=== PATIENT | female | born 1960 | race Caucasian/White ===

== ENCOUNTER 2017-01-12 09:27 | Inpatient (IN) | payer SELFPAY ==
[2017-01-12 09:35] VITALS: BMI 21.4
--- NOTE | 2017-01-12 09:42 | DR.GENAD ---
HPI - PCP Primary Care Physician: DANIELLE - HPI Comment HPI Comment: HISTORY BELOW. - Complaint/Symptoms Chief Complaint Doctors Comments: UPPER ABDOMINAL PAIN FOR SEVERAL DAYS. HAVE GALL STONE. NOT HOLDING DOWN FLUID. HAVING DIARRHEA ALSO. NO FEVER. WORSE TODAY. Chief Complaint:: PT. C/O ABDOMINAL PAIN, WEAKNESS, DEHYDRATION, DIZZINESS, AND DIARRHEA. PT. WAS HOSPITALIZED ON FRIDAY IN [facility] AND WAS DIAGNOSED WITH PANCREATITIS AND GALLSTONES. PT. WAS D/C ON FRIDAY AND HAS GOTTEN WORSE SINCE. - Nurses notes reviewed Nurses Notes Review: Yes - Source History Provided: Patient, Family Member - Mode of Arrival Mode of Arrival: Ambulatory - Timing Onset of Chief Complaint: 01/08/17 - Duration Duration: Days - Severity Severity: Moderate PMH - PMH Past Medical History: Yes Past Medical History: Asthma, COPD Past Medical History Comment: HEMACROMOTISIS, HEP. 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 Past Surgical History Comment: TUBAL LIGATION, LIVER BIOPSY - Family History History of Family Medical Conditions: No - Social History Does patient currently use any type of tobacco product: Yes Have you used tobacco products in the last 12 months: Yes Type of Tobacco Use: Cigarettes Does any household member use tobacco: No Alcohol Use: None Do you use any recreational Drugs:: No Lives With: Friend Lives Where: Home - infectious screening In the last 2 months have you had wt loss of >10#?: NO Have you had fever, night sweats or hemotysis?: No Have you traveled outside the country in the last 6 months?: No Isolation: Standard ROS - Review of Systems Constitutional: Weakness, Fatigue Eyes: No Symptoms Reported ENTM: No Symptoms Reported Respiratoy: No Symptoms Reported Cardiovascular: No Symptoms Reported Gastrointestinal/Abdominal: Abdominal Pain, Diarrhea, Nausea Genitourinary: No Symptoms Reported Neurological: No Symptoms Reported Musculoskeletal: Muscle Pain Integumentary: No Symptoms Reported Hematologic/Lymphatic: No Symptoms Reported Endocrine: No Symptoms Reported PE - Vital Signs Vitals: Temperature 99.1 F Pulse Rate 95 Respiratory Rate 18 Blood Pressure [Right Arm] 133/70 Blood Pressure 93/57 O2 Sat by Pulse Oximetry 99 - General Limitations: No Limitations General Appearance: Alert - Head Head Exam: Normal Inspection - Eyes Eye exam: Normal Appearance - ENT ENT Exam: Normal External Ear Exam External Ear Exam: Normal External Inspection TM/Canal Exam: Bilateral Normal Nose Exam: Normal Nose Exam Mouth Exam: Normal Inspection Throat Exam: Normal Inspection - Neck Neck Exam: Trachea Midline - Chest Chest Inspection: Symmetric Chest Wall Rise - Respiratory Respiratory Exam: Normal Lung Sounds Bilat Respiratory Exam: Bilateral Clear to Auscultation - Cardiovascular Cardiovascular Exam: Regular Rate, Normal Rhythm, Normal Heart Sounds - Abdominal Exam Abdominal Exam: Normal Bowel Sounds, Soft, Tenderness Abdominal Tenderness: Diffuse, Moderate - Extremities Extremities Exam: Normal Inspection - Back Back Exam: Normal Inspection - Psychiatric Psychiatric Exam: Normal Affect, Normal Mood - Skin Skin Exam: Normal Color [facility] - Additional Information Additional Information Obtained From: Old Records - Differential Diagnosis Differential Diagnosis: ABDOMINAL PAIN, HYPOTENSION, GALL STONE Course - Treatment Treatment: SEE ORDERS. - Consultation Consultation Comments: DISCUSS PATIENT WITH DR. MONTES. HE WILL ADMIT PATIENT. - Education/Counseling Education/Counseling: Patient, Family, Education Educated On: Treatment, Diagnosis ROR - Labs Reviewed Laboratory Results Reviewed?: Yes Result Diagrams: 01/13/17 04:28 01/13/17 04:28 Laboratory: 01/12/17 13:17 Stool - Final WBC 12.9 X10^3/uL (3.6-10.0) H 01/12/17 09:56 RBC 3.63 X10^6/uL (3.5-5.4) 01/12/17 09:56 Hgb 11.4 g/dL (12.0-16.0) L 01/12/17 09:56 Hct 33.7 % (36.0-47.0) L 01/12/17 09:56 MCV 93.0 fL (80.0-100.0) 01/12/17 09:56 MCH 31.5 pg (27.0-34.0) 01/12/17 09:56 MCHC 33.9 g/dL (33.0-35.0) 01/12/17 09:56 RDW 13.8 % (11.6-16.5) 01/12/17 09:56 Plt Count 79 X10^3/uL (150.0-450.0) L 01/12/17 09:56 Plt Count Comment Decreased (ADEQUATE) A 01/12/17 09:56 MPV 9.9 fL (7.4-11.0) 01/12/17 09:56 Neut % 70.4 % (42.0-75.0) 01/12/17 09:56 Lymph % 13.7 % (21.0-51.0) L 01/12/17 09:56 Reagan % 15.4 % (0.0-13.0) H 01/12/17 09:56 Eos % 0.1 % (0.9-2.9) L 01/12/17 09:56 Baso % 0.4 % (0.2-1.0) 01/12/17 09:56 Neut # 9.1 x10^3/uL (2.2-4.8) H 01/12/17 09:56 Lymph # 1.8 X10^3/uL (1.3-2.9) 01/12/17 09:56 Reagan # 2.0 x10^3/uL (0.3-0.8) H 01/12/17 09:56 Eos # 0.0 x10^3/uL (0.0-0.2) 01/12/17 09:56 Baso # 0.1 X10^3/uL (0.0-0.1) 01/12/17 09:56 Absolute Nucleated RBC 0.0 /100WBC 01/12/17 09:56 Total Counted 100 01/12/17 09:56 Neutrophils % (Manual) 79 % (39-76) H 01/12/17 09:56 Lymphocytes % (Manual) 13 % (13-43) 01/12/17 09:56 Monocytes % (Manual) 8 % (4-9) 01/12/17 09:56 Nucleated RBCs Cancelled 01/12/17 09:56 Atypical Lymphocytes Cancelled 01/12/17 09:56 Blast Cells Cancelled 01/12/17 09:56 Smudge Cells Cancelled 01/12/17 09:56 Toxic Granulation Cancelled 01/12/17 09:56 Dohle Bodies Cancelled 01/12/17 09:56 Mouna Rods Cancelled 01/12/17 09:56 Plt Clumps, EDTA Cancelled 01/12/17 09:56 Giant Platelets Cancelled 01/12/17 09:56 Plt Morphology Comment Normal (NORMAL) 01/12/17 09:56 RBC Morphology Normal (NORMAL) 01/12/17 09:56 Dimorphic RBCs Cancelled 01/12/17 09:56 Polychromasia Cancelled 01/12/17 09:56 Hypochromasia Cancelled 01/12/17 09:56 Poikilocytosis Cancelled 01/12/17 09:56 Basophilic Stippling Cancelled 01/12/17 09:56 Anisocytosis Cancelled 01/12/17 09:56 Microcytosis Cancelled 01/12/17 09:56 Macrocytosis Cancelled 01/12/17 09:56 Spherocytes Cancelled 01/12/17 09:56 Pappenheimer Bodies Cancelled 01/12/17 09:56 Sickle Cells Cancelled 01/12/17 09:56 Target Cells Cancelled 01/12/17 09:56 Tear Drop Cells Cancelled 01/12/17 09:56 Ovalocytes Cancelled 01/12/17 09:56 Stomatocytes Cancelled 01/12/17 09:56 Helmet Cells Cancelled 01/12/17 09:56 [place] Bodies Cancelled 01/12/17 09:56 [place] Rings Cancelled 01/12/17 09:56 [place] Cells Cancelled 01/12/17 09:56 Crenated Cell Cancelled 01/12/17 09:56 Acanthocytes (Spur) Cancelled 01/12/17 09:56 Rouleaux Cancelled 01/12/17 09:56 Schistocytes Cancelled 01/12/17 09:56 Sodium 131 mmol/L (136-145) L 01/12/17 09:56 Corrected Sodium TNP 01/12/17 09:56 Potassium 3.8 mmol/L (3.5-5.1) 01/12/17 09:56 Chloride 101 mmol/L (98-107) 01/12/17 09:56 Carbon Dioxide 23.4 mmol/L (21-32) 01/12/17 09:56 BUN 5 mg/dL (7-18) L 01/12/17 09:56 Creatinine 1.05 mg/dL (0.55-1.02) H 01/12/17 09:56 Est GFR (MDRD) Af Amer > 60 (>60) 01/12/17 09:56 Est GFR (MDRD) Non-Af 58 (>60) L 01/12/17 09:56 Glucose 103 mg/dL (65-99) H 01/12/17 09:56 Calcium 7.8 mg/dL (8.5-10.1) L 01/12/17 09:56 Corrected Calcium 9.2 mg/dL (8.5-10.1) 01/12/17 09:56 Total Bilirubin 1.50 mg/dL (0.2-1.0) H 01/12/17 09:56 AST 69 Units/L (15-37) H 01/12/17 09:56 ALT 22 Units/L (12-78) 01/12/17 09:56 Alkaline Phosphatase 102 Units/L (46-116) 01/12/17 09:56 Total Protein 7.3 g/dL (6.4-8.2) 01/12/17 09:56 Albumin 2.3 g/dL (3.4-5.0) L 01/12/17 09:56 Globulin 5.0 g/dL (2.5-4.5) H 01/12/17 09:56 Albumin/Globulin Ratio 0.5 Ratio (1.1-2.1) L 01/12/17 09:56 Amylase 75 Units/L (25-115) 01/12/17 09:56 Lipase 151 Units/L (73-393) 01/12/17 09:56 Specimen Type Clean catch urine 01/12/17 10:00 Urine Color Yellow (YELLOW) 01/12/17 10:00 Urine Appearance Hazy (CLEAR) 01/12/17 10:00 Urine pH 6.0 (5.0 - 8.0) 01/12/17 10:00 Ur Specific [place] 1.015 (1.000-1.030) 01/12/17 10:00 Urine Protein 1+ (NEGATIVE) 01/12/17 10:00 Urine Glucose (UA) Negative (NEGATIVE) 01/12/17 10:00 Urine Ketones Negative (NEGATIVE) 01/12/17 10:00 Urine Occult Blood 1+ (NEGATIVE) 01/12/17 10:00 Urine Nitrite Negative (NEGATIVE) 01/12/17 10:00 Urine Bilirubin Negative (NEGATIVE) 01/12/17 10:00 Urine Urobilinogen 1+ (NORMAL) 01/12/17 10:00 Ur Leukocyte Esterase 2+ (NEGATIVE) 01/12/17 10:00 Urine RBC 0 /HPF (NEGATIVE) 01/12/17 10:00 Urine WBC 0-5 /HPF (NEGATIVE) 01/12/17 10:00 Ur Squamous Epith Cells Few /HPF (NEGATIVE) 01/12/17 10:00 Urine Bacteria Trace /HPF (NEGATIVE) 01/12/17 10:00 Ur Culture Indicated? No/not indicated 01/12/17 10:00 Stool Description 20g,brown loose 01/12/17 13:18 Stool for White Cells Negative (NEGATIVE) 01/12/17 13:18 Stl C. diff Tox B Gene Negative (NEGATIVE) 01/12/17 13:21 Stl C. diff [id number] Negative (NEGATIVE) 01/12/17 13:21 Cryptosporid parvum Ag Negative (NEGATIVE) 01/12/17 13:18 E. histolytica Antigen Negative (NEGATIVE) 01/12/17 13:18 Giardia lamblia Ag Negative (NEGATIVE) 01/12/17 13:18 - XRAY XRAY Interpreted by: Radiologist XRAY Findings: REPORT DISCUSS WITH PATIENT - Diagnosis Discharge Problem: Abdominal pain Qualifiers: Abdominal location: upper abdomen, unspecified Qualified Code(s): R10.10 - Upper abdominal pain, unspecified Gall stone Qualifiers: Cholecystitis presence: without cholecystitis Biliary obstruction: without biliary obstruction Qualified Code(s): K80.20 - Calculus of gallbladder without cholecystitis without obstruction Hypotension Qualifiers: Hypotension type: unspecified hypotension type Qualified Code(s): I95.9 - Hypotension, unspecified - Discharge Plan Disposition: ADMITTED INPATIENT Condition: Stable - Follow ups/Referrals - Instructions
[2017-01-12] MEDS ORDERED: NS 1000 ML 1,000 ML IV ONE ×2 (09:54→12:10)
[2017-01-12] MEDS ORDERED: NS 1000 ML 1,000 ML ONE ×2 (09:56→12:11)
[2017-01-12 10:10] LABS: BASOPHILS # (AUTO) 0.1 X10^3/uL (0.0-0.1); BASOPHILS % (AUTO) 0.4 % (0.2-1.0); EOSINOPHILS % (AUTO) 0.1 % (0.9-2.9); HEMATOCRIT 33.7 % (36.0-47.0); HEMOGLOBIN 11.4 g/dL (12.0-16.0); LYMPHOCYTES # (AUTO) 1.8 X10^3/uL (1.3-2.9); LYMPHOCYTES % (AUTO) 13.7 % (21.0-51.0); MEAN CORPUSCULAR HEMOGLOBIN 31.5 pg (27.0-34.0); MEAN CORPUSCULAR HGB CONC 33.9 g/dL (33.0-35.0); MEAN PLATELET VOLUME 9.9 fL (7.4-11.0); MONOCYTES % (AUTO) 15.4 % (0.0-13.0); NEUTROPHILS # (AUTO) 9.1 x10^3/uL (2.2-4.8); NEUTROPHILS % (AUTO) 70.4 % (42.0-75.0); PLATELET COUNT 79 X10^3/uL (150.0-450.0); RED BLOOD COUNT 3.63 X10^6/uL (3.5-5.4); RED CELL DISTRIBUTION WIDTH 13.8 % (11.6-16.5); WHITE BLOOD COUNT 12.9 X10^3/uL (3.6-10.0)
[2017-01-12 10:10] LABS: BILIRUBIN,URINE NEGATIVE (NEGATIVE); BLOOD/HEMOGLOBIN,URINE 1+ (NEGATIVE); GLUCOSE, URINE NEGATIVE (NEGATIVE); KETONES,URINE NEGATIVE (NEGATIVE); LEUKOCYTE ESTERASE ,URINE 2+ (NEGATIVE); NITRITES,URINE NEGATIVE (NEGATIVE); PROTEIN,URINE 1+ (NEGATIVE); UROBILINOGEN,URINE 1+ (NORMAL)
[2017-01-12 10:21] LABS: APPEARANCE,URINE HAZY (CLEAR); BACTERIA,URINE TRACE /HPF (NEGATIVE); COLOR,URINE YELLOW (YELLOW); RBC,URINE 0 /HPF (NEGATIVE); SQUAMOUS EPITHELIAL CELL,UR FEW /HPF (NEGATIVE)
[2017-01-12 10:22] LABS: ALANINE AMINOTRANSFERASE 22 Units/L (12-78); ALBUMIN 2.3 g/dL (3.4-5.0); ALKALINE PHOSPHATASE 102 Units/L (46-116); AMYLASE 75 Units/L (25-115); BLOOD UREA NITROGEN 5 mg/dL (7-18); CALCIUM 7.8 mg/dL (8.5-10.1); CARBON DIOXIDE 23.4 mmol/L (21-32); CHLORIDE 101 mmol/L (98-107); COR CA(FOR HYPOALB) 9.2 mg/dL (8.5-10.1); CREATININE 1.05 mg/dL (0.55-1.02); LIPASE 151 Units/L (73-393); SODIUM 131 mmol/L (136-145); TOTAL PROTEIN 7.3 g/dL (6.4-8.2); eGFR BLACK RACES > 60 (>60); eGFR NON BLACK RACES 58 (>60)
[2017-01-12 10:24] LABS: ASPARTATE AMINO TRANSFERASE 69 Units/L (15-37)
[2017-01-12 10:29] LABS: PLATELET MORPHOLOGY COMMENT NORMAL (NORMAL)
--- NOTE | 2017-01-12 10:45 | CT ---
HISTORY: Abdominal pain and weakness Study: CT abdomen and pelvis without contrast Comparison: None Technique: Multiple axial images of the abdomen and pelvis were obtained from the lung bases to the pubic symphy sis without the administration of IV contrast. Findings: The visualized portions of the lung bases are unremarkable. The liver, spleen, pancreas, kidneys, an d adrenal glands are unremarkable in their noncontrast CT appearance the gallbladder does demonstrate calcific density and heterogeneous attenuation consistent with multiple large stones within the gall bladder. Free fluid layering within the right and left pericolic gutter as well as over the right lob e of the liver is observed. Given the patient's history of pancreatitis may be residual findings. Alessandro e fluid layering within the pelvis is noted as well. No bowel wall thickening or bowel dilatation is present. The colon is unremarkable. Specifically, there is no diverticulosis noted within the sigm oid colon. The urinary bladder is grossly unremarkable. The bony structures are grossly intact. IMPRESSION: 1. Free fluid layering throughout the abdomen is noted and may be secondary to inflammatory changes from recent pancreatitis. However, at this time the pancreas does not demonstrate focal inflammatory changes or a pseudocyst. 2. Multiple large stones within the gallbladder are noted to be present but not well defined on this noncontrast CT of the abdomen and pelvis. Reported By:
[2017-01-12] MEDS ORDERED: PEPCID 20 MG IV PREMIX* 20 MG/50 ML BAG IV ONE ×2 (11:14→11:16)
[2017-01-12] MEDS ORDERED: TUSSIONEX PENNKINETIC SUSP PO ONE (11:18)
[2017-01-12] MEDS ORDERED: TUSSIONEX PENNKINETIC SUSP ONE (11:19)
[2017-01-12 13:54] LABS: CRYPTOSPORIDIUM PARVUM ANTIGEN NEGATIVE (NEGATIVE); GIARDIA LAMBLIA ANTIGEN NEGATIVE (NEGATIVE); STOOL FOR WBC NEGATIVE (NEGATIVE)
[2017-01-12] MEDS ORDERED: MORPHINE SULFATE INJ 2 MG INJ IVP PRN (14:50)
[2017-01-12] MEDS ORDERED: TYLENOL 325 MG TAB PO PRN (14:50)
[2017-01-12] MEDS ORDERED: PEPCID 20 MG IV PREMIX* 20 MG/50 ML BAG IV PRN (14:50)
[2017-01-12] MEDS: NS 1000 ML 1,000 ML IV SCH ×2 (16:33→23:10)
[2017-01-12] MEDS: DUONEB 0.5 MG/3 MG NEB SCH ×3 (16:38→21:35)
--- NOTE | 2017-01-12 17:08 | RAD ---
HISTORY: Cough and wheezing Study: Single-view chest Comparison: None available Findings: The trachea is midline. The cardiac silhouette is unremarkable. Diffuse interlobular septal thicken ing of the right and left apical lung zone is observed. Consolidation and airspace opacity in the lef t apical lung zone is noted be present continued evaluation CT of the chest with contrast is recommen ded as underlying interstitial lung disease cannot be entirely excluded given the reticular nodular a nd interlobular septal thickening. Multifocal pneumonia could have a similar appearance but the lack of basilar involvement would be unusual. The bony thorax is unremarkable. IMPRESSION: Interlobular septal thickening of the right and left apical lung zones with focal consolidation airsp hanny opacity of the left upper lobe. Continued evaluation with CT of the chest is recommended as under lying interstitial lung disease is the primary consideration. Multifocal bronchopneumonia cannot be e ntirely excluded but the lack basilar involvement would be unusual. Reported By:
[2017-01-12] MEDS: TESSALON PERLES PO PRN (17:20)
[2017-01-12] MEDS: ROXICODONE TAB 5 MG PO PRN (17:20)
[2017-01-12] MEDS ORDERED: PREVNAR 13 IM ONE (17:26)
[2017-01-12] MEDS ORDERED: FLUVIRIN IM ONE (17:26)
[2017-01-12] MEDS ORDERED: PULMICORT NEB TX 0.5 MG NEB SCH (21:45)
[2017-01-12] MEDS ORDERED: MOTRIN TAB 400 MG PO ONE (23:14)
[2017-01-13] MEDS: TESSALON PERLES PO PRN (01:28)
[2017-01-13] MEDS: NS 1000 ML 1,000 ML IV SCH ×3 (02:15→13:56)
[2017-01-13] MEDS: TUSSIONEX PENNKINETIC SUSP PO PRN ×2 (03:35→13:56)
[2017-01-13 05:50] LABS: ALANINE AMINOTRANSFERASE 17 Units/L (12-78); ALBUMIN 1.7 g/dL (3.4-5.0); ALKALINE PHOSPHATASE 71 Units/L (46-116); AMYLASE 90 Units/L (25-115); ASPARTATE AMINO TRANSFERASE 53 Units/L (15-37); BLOOD UREA NITROGEN 6 mg/dL (7-18); CALCIUM 7.1 mg/dL (8.5-10.1); CARBON DIOXIDE 24.8 mmol/L (21-32); CHLORIDE 108 mmol/L (98-107); COR CA(FOR HYPOALB) 8.9 mg/dL (8.5-10.1); CREATININE 0.87 mg/dL (0.55-1.02); LIPASE 202 Units/L (73-393); SODIUM 138 mmol/L (136-145); TOTAL PROTEIN 5.6 g/dL (6.4-8.2); eGFR BLACK RACES > 60 (>60); eGFR NON BLACK RACES > 60 (>60)
[2017-01-13 06:21] LABS: BASOPHILS % (AUTO) 0.5 % (0.2-1.0); EOSINOPHILS # (AUTO) 0.1 x10^3/uL (0.0-0.2); EOSINOPHILS % (AUTO) 0.9 % (0.9-2.9); HEMATOCRIT 28.6 % (36.0-47.0); HEMOGLOBIN 9.6 g/dL (12.0-16.0); LYMPHOCYTES # (AUTO) 1.4 X10^3/uL (1.3-2.9); LYMPHOCYTES % (AUTO) 13.9 % (21.0-51.0); MEAN CORPUSCULAR HEMOGLOBIN 31.7 pg (27.0-34.0); MEAN CORPUSCULAR HGB CONC 33.6 g/dL (33.0-35.0); MEAN CORPUSCULAR VOLUME 94.3 fL (80.0-100.0); MONOCYTES # (AUTO) 1.5 x10^3/uL (0.3-0.8); MONOCYTES % (AUTO) 14.8 % (0.0-13.0); NEUTROPHILS # (AUTO) 6.9 x10^3/uL (2.2-4.8); NEUTROPHILS % (AUTO) 69.9 % (42.0-75.0); PLATELET COUNT 78 X10^3/uL (150.0-450.0); RED BLOOD COUNT 3.04 X10^6/uL (3.5-5.4); RED CELL DISTRIBUTION WIDTH 13.9 % (11.6-16.5); WHITE BLOOD COUNT 9.9 X10^3/uL (3.6-10.0)
[2017-01-13] MEDS: DUONEB 0.5 MG/3 MG NEB SCH ×4 (09:26→20:41)
[2017-01-13] MEDS: PULMICORT NEB TX 0.5 MG NEB SCH ×2 (09:26→20:41)
[2017-01-13] MEDS ORDERED: FORTAZ or TAZICEF INJ 1 GM in NS 50 ML IV + SPIKE MINIBAG* 50 ML IV SCH (11:00)
[2017-01-13] MEDS: ALBUMIN HUMAN 25%- 100ML 200 ML IV SCH (11:40)
[2017-01-13] MEDS: LEVAQUIN PREMIX IV 750 MG 750 MG/150 ML BAG IV SCH (11:41)
[2017-01-13] MEDS ORDERED: NS 100 ML IV 100 ML IV ONE (11:41)
[2017-01-13] MEDS ORDERED: SYNTHROID 25 mcg TAB PO SCH (12:00)
[2017-01-13] MEDS: FORTAZ or TAZICEF INJ 1 GM in NS 50 ML IV 50 ML IV SCH ×2 (14:47→22:08)
--- NOTE | 2017-01-13 16:21 | CT ---
STUDY: CT CHEST WITH CONTRAST HISTORY: Shortness of breath. Cough. Comparison: Chest radiograph from 01/16/2017. Technique: Multiple axial images of the chest were obtained from the thoracic inlet to the upper abdo men with the administration of IV contrast. Findings: Multiple shotty lymph nodes are noted within the mediastinum. No pathologically enlarged lymph nodes are identified. There is no significant pericardial effusion. The aorta has a normal appearance. T he central pulmonary arterial system has a normal appearance. Evaluation of the lung parenchyma shows severe thickening of the pulmonary interstitium. There is a p redominantly upper lobe distribution, with minimal disease noted in the lower lobes bilaterally. Alth ough interstitial involvement predominates, there also appears to be some superimposed airspace opaci ty in both upper lobes. There is no evidence of consolidation, or pneumothorax. There are small bilateral pleural effusions. No pulmonary nodule or mass is identified. The bony thorax is unremarkable in its appearance. There is a small amount of abdominal ascites. IMPRESSION: 1. Extensive interstitial thickening involving predominantly both upper lobes. There appears to be s ome superimposed of airspace opacity in the same regions. Differential considerations would include t uberculosis, cystic fibrosis, hypersensitivity pneumonitis, sarcoidosis, silicosis, eosinophilic pneu monia or smoke inhalation. A superimposed bacterial infectious process cannot be excluded. Clinical correlation is recommended. Reported By:
[2017-01-13] MEDS ORDERED: MOTRIN TAB 400 MG PO ONE (16:26)
[2017-01-13] MEDS: ROXICODONE TAB 5 MG PO PRN (19:23)
[2017-01-14] MEDS: NS 1000 ML 1,000 ML IV SCH ×3 (00:37→17:09)
[2017-01-14] MEDS: ROXICODONE TAB 5 MG PO PRN ×2 (01:34→22:30)
[2017-01-14] MEDS: FORTAZ or TAZICEF INJ 1 GM in NS 50 ML IV 50 ML IV SCH ×3 (05:53→22:19)
[2017-01-14] MEDS: SYNTHROID 50 mcg TAB PO SCH (06:02)
[2017-01-14 06:51] LABS: ALANINE AMINOTRANSFERASE 19 Units/L (12-78); ALBUMIN 2.7 g/dL (3.4-5.0); ALKALINE PHOSPHATASE 66 Units/L (46-116); AMYLASE 77 Units/L (25-115); ASPARTATE AMINO TRANSFERASE 49 Units/L (15-37); BLOOD UREA NITROGEN 5 mg/dL (7-18); CALCIUM 7.9 mg/dL (8.5-10.1); CARBON DIOXIDE 24.2 mmol/L (21-32); CHLORIDE 108 mmol/L (98-107); COR CA(FOR HYPOALB) 8.9 mg/dL (8.5-10.1); CREATININE 0.63 mg/dL (0.55-1.02); LIPASE 156 Units/L (73-393); SODIUM 140 mmol/L (136-145); TOTAL PROTEIN 6.5 g/dL (6.4-8.2); eGFR BLACK RACES > 60 (>60); eGFR NON BLACK RACES > 60 (>60)
[2017-01-14 06:54] LABS: BASOPHILS % (AUTO) 0.6 % (0.2-1.0); EOSINOPHILS # (AUTO) 0.3 x10^3/uL (0.0-0.2); EOSINOPHILS % (AUTO) 4.5 % (0.9-2.9); HEMATOCRIT 29.4 % (36.0-47.0); LYMPHOCYTES # (AUTO) 1.4 X10^3/uL (1.3-2.9); LYMPHOCYTES % (AUTO) 19.2 % (21.0-51.0); MEAN CORPUSCULAR HEMOGLOBIN 31.8 pg (27.0-34.0); MEAN CORPUSCULAR HGB CONC 34.1 g/dL (33.0-35.0); MEAN CORPUSCULAR VOLUME 93.4 fL (80.0-100.0); MONOCYTES # (AUTO) 0.8 x10^3/uL (0.3-0.8); MONOCYTES % (AUTO) 11.7 % (0.0-13.0); NEUTROPHILS # (AUTO) 4.6 x10^3/uL (2.2-4.8); PLATELET COUNT 80 X10^3/uL (150.0-450.0); RED BLOOD COUNT 3.14 X10^6/uL (3.5-5.4); RED CELL DISTRIBUTION WIDTH 13.7 % (11.6-16.5); WHITE BLOOD COUNT 7.2 X10^3/uL (3.6-10.0)
[2017-01-14] MEDS: TUSSIONEX PENNKINETIC SUSP PO PRN (07:11)
--- NOTE | 2017-01-14 08:32 | RAD ---
HISTORY: Shortness of breath Study: Single-view of the chest Comparison: 01/13/2017 Findings: The trachea is midline. The cardiac silhouette is unremarkable. Images again demonstrate diffuse in terstitial thickening involving both lungs primarily the upper lobes. These findings have progressed/ worsened since prior study. Superimposed consolidation/pneumonia cannot entirely be excluded. Mick mmend clinical correlation and continued close interval follow-up for further evaluation. IMPRESSION: 1. Interval progression/worsening of disease as noted above. Reported By:
--- NOTE | 2017-01-14 09:24 | DR.CONSULT ---
Consult - Consultation for Day of: Date: 01/13/17 - Chief Complaint Chief Complaint: Nausea, Vomiting, Diarrhea, Abdominal pain - Allergies Allergies/Adverse Reactions: Allergies Allergy/AdvReac Type Severity Reaction Status Date / Time minocycline [From Minocin] Allergy Verified 01/12/17 09:35 - History of Present Illness History of Present Illness: Patient is a 56yo female who was referred for gall stones, abdominal pain, and abnormal LFTs. Patient has chronic viral Hep C genotype 1 and has been treated with Harvoni which she completed on 12/21/16. Her last Hep C quant on 12/20/2016 was not detected. Patient also has a history of Cirrhosis nad hemochromatosis. Patient complains of Nausea and vomiting after eating and abdominal pain which is more on her right side. Not tenderness is noted on palpitation of all 4 quadrations but on palpitation of side directly under ribs she has tenderness. She states this pain radiates through her back. Hgb 9.6, Total Bilirubin 1.0, AST 53, ALT 17, Alkaline Phosphatase 71 , Stool studies are negative. 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 - Social History Does patient currently use any type of tobacco product: Yes Have you used tobacco products in the last 12 months: Yes Type of Tobacco Use: Cigarettes How many years tobacco product used: 43 Does any household member use tobacco: No Alcohol Use: None Drug Use: Prescription Drugs - Medications Home Medications: Albuterol Sulfate [Proair Hfa] 1 inh INH PRN PRN 01/12/17 [History Confirmed ] Clonazepam [Klonopin] 1 tab PO TID PRN 01/12/17 [History Confirmed 01/12/17] Levothyroxine Sodium [SYNTHROID 25 mcg *] 50 mcg PO DAILY 01/12/17 [History Confirmed 01/12/17] - Review of Systems Constitutional: No Symptoms Reported Eyes: No Symptoms Reported ENT: No Symptoms Reported Respiratory: No Symptoms Reported Cardiovascular: No Symptoms Reported Gastrointestinal: See HPI, Nausea, Vomiting, Abdominal Pain, Diarrhea, Other ( denies dysphagia, dyspepsia). denies: Constipation, Melena, Hematochezia Genitourinary: No Symptoms Reported Musculoskeletal: No Symptoms Reported Skin: No Symptoms Reported Neurological: No Symptoms Reported - Physical Exam Vital Signs: Temperature 97.4 F Pulse Rate [Left Radial] 78 Pulse Rate 105 Respiratory Rate 20 Blood Pressure [Right Arm] 95/53 Blood Pressure 93/57 O2 Sat by Pulse Oximetry 100 Oriented: Normal Eyes: Normal Ear: Normal Nose: Normal Throat: Normal Respiratory: Clear Throughout Cardiovascular: Normal : Normal Auscultation: Bowel Sounds: Normal Palpation: Normal, Other (no distention). negative: Spleen Enlarged, Liver Enlarged, Mass Pulsatile Tenderness: Other (No tenderness to all four quadrants tenderness noted to right side under ribs) Skin: Normal Musculoskeletal: Normal Psychiatric: Normal Mood Description: Calm Affect: Normal Speech Pattern: Clear - Plan Plan: Assessment. 1. N/V/D likely gastroenteritis. 2. Right Musculoskeletal pain. 3. Symptomatic Cholelithiasis. Plan. 1. Pepcid 20mg BID, Zofran PRN, advance diet as tolerated, will perform EGD if symptoms persist. 2. Monitor likely secondary to cholelithiasis. 3. May need surgical intervention
[2017-01-14] MEDS: DUONEB 0.5 MG/3 MG NEB SCH ×4 (09:33→21:09)
[2017-01-14] MEDS: PULMICORT NEB TX 0.5 MG NEB SCH ×2 (09:33→21:09)
[2017-01-14] MEDS: ALBUMIN HUMAN 25%- 100ML 200 ML IV SCH (09:49)
[2017-01-14] MEDS: LEVAQUIN PREMIX IV 750 MG 750 MG/150 ML BAG IV SCH (11:05)
[2017-01-14] MEDS: SOLU-Medrol 40 MG VIAL IVP SCH ×3 (11:44→22:19)
[2017-01-14] MEDS: THEO-DUR TAB 200 MG PO SCH ×2 (11:44→22:19)
[2017-01-14] MEDS: MUCOMYST 20% 200 MG/ML NEB SCH ×2 (11:46→21:09)
[2017-01-14] MEDS: ZOFRAN INJ 4 MG VIAL IVP PRN (16:15)
--- NOTE | 2017-01-14 18:28 | DR.H&P ---
H&P - History & Physical for Day of: H&P Date: 01/12/17 - Chief Complaint Chief Complaint: abdominal pain, nausea, vomiting, diarrhea - Allergies Allergies/Adverse Reactions: Allergies Allergy/AdvReac Type Severity Reaction Status Date / Time minocycline [From Minocin] Allergy Verified 01/12/17 09:35 - History of Present Illness History of Present Illness: Ms. Emmanuel is a 56 year old female who presented to the emergency room with complaints of upper abdominal pain for several days. Patient reports that she was hospitalized in [facility] last week and diagnosed with pancreatitis and gallstones. Patient reports that she was discharged on Friday, and that her symptoms have progressively gotten worse. Abdominal pain is accompanied by nausea, vomiting, and diarrhea. Associated symptoms include weakness, fatigue, and muscle pain. She reports a medical history of asthma, COPD, hemacromotisis, Hepatitis C, tubal ligation, and a liver biopsy. On examination, lungs were noted with crackles. Patient reports that she has had a cough for several days. Abdomen is flat, soft, and noted with diffuse, moderate abdominal tenderness on palpation. On arrival to the ER, vitals were 99.1-95-18-99%-93/57. Labs and a abd/pelvis CT were obtained. Abnormal lab values include the following: WBC 12.9, Hgb 11.4, Hct 33.7, Plt Count 79, Plt count Comment Decreased A, Sodium 131, BUN 5, Creatinine 1.05, GFR (non) 58, Glucose 103, Calcium 7.8, Total Bilirubin 1.50, AST 69, Albumin 2.3, Globulin 5.0, A/G Ratio 0.5. Urinalysis reported: Osiel Hazy, Protein 1+, Occult Blood 1+, Urobilionogen 1+, Leuk Becky 2+, RBC 0, WBC 0-5, Squam Epith Cells Few , Bacteria Trace. Blood, sputum, and stool cultures were collected. Results of cultures are currently pending. Chest xray reported: Interlobular septal thickening of the right and left apical lung zones with focal consolidation airspace opacity of the left upper lobe. Continued evaluation with CT of the chest is recommended as underlying interstitial lung disease is the primary consideration. Multifocal bronchopneumonia cannot be entirely excluded but the lack basilar involvement would be unusual. Abd/Pelvis CT reported: Free fluid layering throughout the abdomen is noted and may be secondary to inflammatory changes from recent pancreatitis. However, at this time the pancreas does not demonstrate focal inflammatory changes or a pseudocyst. Multiple large stones within the gallbladder are noted to be present but not well defined on this non contrast CT of the abdomen and pelvis. spoke with . reports consulting with the patient at [facility]. He states that he recommends removing patients gallbladder on an elective, outpatient basis. We admitted patient for further treatment and evaluation. 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 was also consulted for continuation of care. Patient was started on NS at 150ml/hr, Phenergan 12.5mg IVP q6h prn nausea, Zofran 4mg IVP q6h prn nausea, Pepcid 20mg IV q12h, Tussionex 5ml q12h prn cough, Tessalon perles 200mg po TID prn cough, Duoneb QID, and oxycodone 5mg po q6h prn for generalized pain. We will obtain a Chest CT with contrast in the morning and follow up with AM labs. We will continue to monitor patient. 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 Additional Surgical History: TUBAL LIGATION, LIVER BIOPSY - Social History Does patient currently use any type of tobacco product: Yes Have you used tobacco products in the last 12 months: Yes Type of Tobacco Use: Cigarettes How many years tobacco product used: 43 Does any household member use tobacco: No Alcohol Use: None Drug Use: Prescription Drugs - Medications Home Medications: Albuterol Sulfate [Proair Hfa] 1 inh INH PRN PRN 01/12/17 [History Confirmed ] Clonazepam [Klonopin] 1 tab PO TID PRN 01/12/17 [History Confirmed 01/12/17] Levothyroxine Sodium [SYNTHROID 25 mcg *] 50 mcg PO DAILY 01/12/17 [History Confirmed 01/12/17] - Review of Systems Constitutional: Fever, Weakness Eyes: No Symptoms Reported. denies: Pain, Vision Change, Conjunctivae Inflammation ENT: No Symptoms Reported. denies: Ear Pain, Ear Discharge, Nose Pain, Nose Discharge, Nose Congestion Respiratory: See HPI, Cough, Shortness of Breath, SOB with Excertion Cardiovascular: Light Headedness. denies: Chest Pain, Edema Gastrointestinal: Nausea, Vomiting, Abdominal Pain, Diarrhea. denies: Melena, Hematochezia Genitourinary: No Symptoms Reported. denies: Dysuria, Hematuria, Retention Musculoskeletal: Other (GENERALIZED MUSCLE PAIN ) Skin: No Symptoms Reported. denies: Wound, Ecchymosis Neurological: Weakness. denies: Incoordination, Change in Speech, Seizures - Physical Exam Vital Signs: Temperature 97.9 F Pulse Rate [Right Brachial] 102 Pulse Rate [Left Radial] 78 Pulse Rate 89 Respiratory Rate 18 Blood Pressure [Right Arm] 118/58 Blood Pressure 93/57 O2 Sat by Pulse Oximetry 96 Oriented: Normal Eyes: Normal. negative: Blurred Vision, Diplopia, Discharge, Pain, Photophobia Ear: Normal. negative: Abrasion, Laceration Nose: Normal. negative: Discharge, Blood Throat: Normal Respiratory: Rhonchi Throughout Cardiovascular: Normal. negative: Murmur, Edema : Normal. negative: Testicular Pain, Bleeding, Auscultation: Bowel Sounds: Increased Palpation: Normal Tenderness: Diffuse, Moderate. negative: Rebound, Guarding, Rigidity Skin: Normal. negative: Wound, Bruising, Ecchymosis Musculoskeletal: Normal Psychiatric: Normal Mood Description: Calm Affect: Normal Speech Pattern: Clear - Assessment/Plan (1) Abdominal pain Qualifiers: Abdominal location: upper abdomen, unspecified Qualified Code(s): R10.10 - Upper abdominal pain, unspecified Status: Acute Plan: PEPCID IV Q12H, PHENERGAN 12.5MG IVP Q6H PRN, ZOFRAN 4MG IVP Q6H PRN, CONTINUE TO MONITOR (2) Gall stone Qualifiers: Cholecystitis presence: without cholecystitis Biliary obstruction: without biliary obstruction Qualified Code(s): K80.20 - Calculus of gallbladder without cholecystitis without obstruction Status: Acute Plan: CONSULT , CONTINUE TO MONITOR (3) Bronchopneumonia Status: Acute Plan: TESSALON PERLES 200MG TID PRN, TUSSIONEX 5ML PO Q12H PRN, DUONEB QID, CONTINUE TO MONITOR (4) Hypotension Qualifiers: Hypotension type: unspecified hypotension type Qualified Code(s): I95.9 - Hypotension, unspecified Status: Acute Plan: NORMAL SALINE AT 150ML/HR, CONTINUE TO MONITOR
[2017-01-15] MEDS: NS 1000 ML 1,000 ML IV SCH ×3 (04:59→13:27)
[2017-01-15] MEDS: FORTAZ or TAZICEF INJ 1 GM in NS 50 ML IV 50 ML IV SCH ×3 (05:29→21:23)
[2017-01-15] MEDS: SOLU-Medrol 40 MG VIAL IVP SCH ×3 (05:29→21:23)
[2017-01-15 05:36] LABS: BASOPHILS % (AUTO) 0.1 % (0.2-1.0); HEMATOCRIT 29.8 % (36.0-47.0); HEMOGLOBIN 10.1 g/dL (12.0-16.0); LYMPHOCYTES # (AUTO) 0.5 X10^3/uL (1.3-2.9); LYMPHOCYTES % (AUTO) 10.7 % (21.0-51.0); MEAN CORPUSCULAR HEMOGLOBIN 31.8 pg (27.0-34.0); MEAN CORPUSCULAR HGB CONC 33.9 g/dL (33.0-35.0); MEAN CORPUSCULAR VOLUME 93.9 fL (80.0-100.0); MONOCYTES # (AUTO) 0.3 x10^3/uL (0.3-0.8); MONOCYTES % (AUTO) 7.1 % (0.0-13.0); NEUTROPHILS # (AUTO) 3.8 x10^3/uL (2.2-4.8); NEUTROPHILS % (AUTO) 82.1 % (42.0-75.0); PLATELET COUNT 88 X10^3/uL (150.0-450.0); RED BLOOD COUNT 3.17 X10^6/uL (3.5-5.4); RED CELL DISTRIBUTION WIDTH 13.9 % (11.6-16.5); WHITE BLOOD COUNT 4.6 X10^3/uL (3.6-10.0)
[2017-01-15 05:46] LABS: ALANINE AMINOTRANSFERASE 18 Units/L (12-78); ALBUMIN 3.1 g/dL (3.4-5.0); ALKALINE PHOSPHATASE 63 Units/L (46-116); ASPARTATE AMINO TRANSFERASE 47 Units/L (15-37); BLOOD UREA NITROGEN 6 mg/dL (7-18); CALCIUM 8.4 mg/dL (8.5-10.1); CARBON DIOXIDE 25.9 mmol/L (21-32); CHLORIDE 108 mmol/L (98-107); COR CA(FOR HYPOALB) 9.1 mg/dL (8.5-10.1); COR NA(FOR HYPERGLY) 143 mmol/L (136-145); CREATININE 0.88 mg/dL (0.55-1.02); SODIUM 142 mmol/L (136-145); TOTAL PROTEIN 6.9 g/dL (6.4-8.2); eGFR BLACK RACES > 60 (>60); eGFR NON BLACK RACES > 60 (>60)
[2017-01-15] MEDS ORDERED: MAG-OX TAB PO PRN (05:54)
[2017-01-15] MEDS ORDERED: K-RIDER 10 MEQ/NS 100 ML 10 MEQ/100 ML BAG IV PRN (05:54)
[2017-01-15] MEDS ORDERED: MAGNESIUM SULFATE 1 GM/100 mL PREMIX 1 GM/100 ML BAG IV PRN (05:54)
[2017-01-15] MEDS: SYNTHROID 50 mcg TAB PO SCH (06:10)
--- NOTE | 2017-01-15 06:40 | RAD ---
HISTORY: Shortness of breath Study: Chest AP portable Comparison: 01/14/2017 plain film and chest CT Findings: The heart is within normal limits in size. Once again demonstrated is bilateral upper lobe interstiti al infiltrates with some superimposed alveolar filling. There is also involvement of the superior seg ment of the left lower lobe. Differential diagnosis is unchanged from that given on the chest CT. He ventrally, bronchoscopy, culture, and biopsy may be required for definitive diagnosis. The remainder of the lower lung prince are clear. No pleural effusions are identified. The bony thorax is unremarka ble. IMPRESSION: No change severe diffuse predominately upper lobe interstitial lung disease with some patchy areas of alveolar filling. Reported By:
[2017-01-15] MEDS: K-LYTE EFFERVESCENT PO PRN ×2 (07:06→18:48)
[2017-01-15] MEDS: DUONEB 0.5 MG/3 MG NEB SCH ×4 (08:58→21:32)
[2017-01-15] MEDS: PULMICORT NEB TX 0.5 MG NEB SCH ×2 (08:59→21:32)
[2017-01-15] MEDS: MUCOMYST 20% 200 MG/ML NEB SCH ×2 (08:59→21:33)
[2017-01-15] MEDS: THEO-DUR TAB 200 MG PO SCH ×2 (10:24→21:23)
[2017-01-15] MEDS: ALBUMIN HUMAN 25%- 100ML 200 ML IV SCH (10:24)
[2017-01-15] MEDS: LEVAQUIN PREMIX IV 750 MG 750 MG/150 ML BAG IV SCH (10:25)
[2017-01-15] MEDS ORDERED: APLISOL ID ONE (11:01)
[2017-01-15] MEDS: ROXICODONE TAB 5 MG PO PRN (11:31)
[2017-01-15] MEDS: NS 250 ML IV 250 ML IV SCH (12:10)
[2017-01-15] MEDS ORDERED: POTASSIUM CHLORIDE LIQ 20 MEQ UDC PO NR (12:22)
--- NOTE | 2017-01-15 13:09 | PCM.PROG ---
Progress Note - Progress Note for Day of Date: 01/13/17 - Subjective Subjective: WAS ADMITTED FOR ABDOMINAL PAIN. CT REVEALED GALL STONES. REPORTS THAT HE RECOMMENDS FOLLOW UP FOR GALLSTONES ON AN OUTPATIENT BASIS. TODAY, SHE IS ALERT AND ORIENTED, SITTING UP IN BED ON MORNING ROUNDS. PATIENT'S DAUGHTER IS AT BEDSIDE. PATIENT IS NOTED WITH COMPLAINTS OF WEAKNESS, COUGH, SHORNTESS OF BREATH, AND ABDOMINAL PAIN. PATIENT REPORTS THAT SHE HAS HAD A COUGH FOR QUITE SOME TIME THAT DOES NOT SEEM TO BE IMPROVING. SHE REPORTS THAT COUGH IS PRODUCTIVE. ON EXAMINATION, LUNGS ARE NOTED WITH CRACKLES BILATERALLY TO AUSCULTATION. ABDOMEN IS ROUND, SOFT, AND NOTED WITH DIFFUSE TENDERNESS ON PALPATION. SHE DENIES DIARRHEA THROUGHOUT THE NIGHT OR THIS MORNING. STAFF REPORTS THAT PATIENT HAD A TEMPERATURE OF 103.1 LAST NIGHT. HER VITALS THIS MORNING ARE 97.5-91-20-96%-115/78. ABNORMAL LAB VALUES TODAY INCLUDE THE FOLLOWING: RBC 3.04, HGB 9.6, HCT 28.6, PLT COUNT 78, CHLORIDE 108, BUN 6, GLUCOSE 104, CALCIUM 7.1, AST 53, TOTAL PROTEIN 5.6, ALBUMIN 1.7. WE OBTAINED A CT OF THE CHEST TODAY. IT REPORTED EXTENSIVE INTERSTITIAL THICKENING INVOLVING PREDOMINANTLY BOTH UPPER LOBES. SOME SUPERIMPOSED OF AIRSPACE OPACITY IN THE SAME REGIONS. DIFFERENTIAL CONSIDERATIONS WOULD INCLUDE TUBERCULOSIS, CYSTIC FIBROSIS, HYPERSENSITIVITY PNEUMONITIS, SARCOIDOSIS, SILICOSIS, EOSINOPHILIC PNEUMONIA, OR SMOKE INHALATION. A SUPERIMPOSED BACTERIAL INFECTIOUS PROCESS CANNOT BE INCLUDE. IT ALSO REPORTED A SMALL AMOUNT OF ABDOMINAL ASCITES. PATIENT REPORTS BEING A HEAVY SMOKER FOR 43 YEARS. SHE CURRENTLY REPORTS SMOKING 1/2 PACK PER DAY. TODAY , WE WILL START FORTAZ 1GM IV Q8H, LEVAQUIN 750MG IV DAILY, ALBUMIN 25% 2 BAGS DAILY, OBTAIN A FLU SWAB, CONSULT GASTROENTEROLOGY, AND OBTAIN AM LABS. WE WILL CONTINUE TO MONITOR PATIENT. - Past Medical Family Social History Past Med/Fam/Surg Hx: No changes since H&P Allergies: Allergies minocycline [From Minocin] Allergy (Verified 01/12/17 09:35) - Review of Systems ROS: No change since H&P - Vital Signs and I&O's Vital Signs: Temperature 97.7 F Pulse Rate [Right Brachial] 112 Pulse Rate [Left Radial] 78 Pulse Rate 68 Respiratory Rate 22 Blood Pressure [Right Arm] 136/66 Blood Pressure 93/57 O2 Sat by Pulse Oximetry 91 Intake and Output: Intake & Output 01/13/17 01/14/17 01/15/17 01/16/17 11:59 11:59 11:59 11:59 Intake Total 840 2700 1800 Output Total 400 2600 150 Balance 456 482 4611 - Physical Exam Oriented: Normal Eyes: Normal. negative: Blurred Vision, Diplopia, Discharge, Pain, Photophobia Ear: Normal. negative: Abrasion, Laceration Nose: Normal. negative: Discharge, Blood Throat: Normal Respiratory: OTHER (CRACKLES) Cardiovascular: Normal. negative: Murmur, Edema : Normal. negative: Testicular Pain, Bleeding, Auscultation: Bowel Sounds: Increased Palpation: Normal Tenderness: Diffuse, Moderate. negative: Rebound, Guarding, Rigidity Skin: Normal. negative: Wound, Bruising, Ecchymosis Musculoskeletal: Normal Psychiatric: Normal Mood Description: Calm Affect: Normal Speech Pattern: Clear, Appropriate - Laboratory and Diagnostics Result Diagrams: 01/15/17 04:45 01/15/17 10:22 Labs: 01/12/17 21:42 Sputum - Expectorated Sputum Sputum Culture - Final 01/12/17 21:42 Sputum - Expectorated Sputum - Final 01/12/17 19:53 Blood Blood Culture - Preliminary 01/12/17 19:58 Blood Blood Culture - Preliminary 01/12/17 13:17 Stool Stool Culture - Final 01/12/17 13:17 Stool - Final Laboratory WBC 4.6 X10^3/uL (3.6-10.0) 01/15/17 04:45 RBC 3.17 X10^6/uL (3.5-5.4) L 01/15/17 04:45 Hgb 10.1 g/dL (12.0-16.0) L 01/15/17 04:45 Hct 29.8 % (36.0-47.0) L 01/15/17 04:45 MCV 93.9 fL (80.0-100.0) 01/15/17 04:45 MCH 31.8 pg (27.0-34.0) 01/15/17 04:45 MCHC 33.9 g/dL (33.0-35.0) 01/15/17 04:45 RDW 13.9 % (11.6-16.5) 01/15/17 04:45 Plt Count 88 X10^3/uL (150.0-450.0) L 01/15/17 04:45 Plt Count Comment Decreased (ADEQUATE) A 01/12/17 09:56 MPV 10.0 fL (7.4-11.0) 01/15/17 04:45 Neut % 82.1 % (42.0-75.0) H 01/15/17 04:45 Lymph % 10.7 % (21.0-51.0) L 01/15/17 04:45 Amite % 7.1 % (0.0-13.0) 01/15/17 04:45 Eos % 0.0 % (0.9-2.9) L 01/15/17 04:45 Baso % 0.1 % (0.2-1.0) L 01/15/17 04:45 Neut # 3.8 x10^3/uL (2.2-4.8) 01/15/17 04:45 Lymph # 0.5 X10^3/uL (1.3-2.9) L 01/15/17 04:45 Amite # 0.3 x10^3/uL (0.3-0.8) 01/15/17 04:45 Eos # 0.0 x10^3/uL (0.0-0.2) 01/15/17 04:45 Baso # 0.0 X10^3/uL (0.0-0.1) 01/15/17 04:45 Absolute Nucleated RBC 0.1 /100WBC 01/15/17 04:45 Total Counted 100 01/12/17 09:56 Neutrophils % (Manual) 79 % (39-76) H 01/12/17 09:56 Lymphocytes % (Manual) 13 % (13-43) 01/12/17 09:56 Monocytes % (Manual) 8 % (4-9) 01/12/17 09:56 Nucleated RBCs Cancelled 01/12/17 09:56 Atypical Lymphocytes Cancelled 01/12/17 09:56 Blast Cells Cancelled 01/12/17 09:56 Smudge Cells Cancelled 01/12/17 09:56 Toxic Granulation Cancelled 01/12/17 09:56 Dohle Bodies Cancelled 01/12/17 09:56 Mouna Rods Cancelled 01/12/17 09:56 Plt Clumps, EDTA Cancelled 01/12/17 09:56 Giant Platelets Cancelled 01/12/17 09:56 Plt Morphology Comment Normal (NORMAL) 01/12/17 09:56 RBC Morphology Normal (NORMAL) 01/12/17 09:56 Dimorphic RBCs Cancelled 01/12/17 09:56 Polychromasia Cancelled 01/12/17 09:56 Hypochromasia Cancelled 01/12/17 09:56 Poikilocytosis Cancelled 01/12/17 09:56 Basophilic Stippling Cancelled 01/12/17 09:56 Anisocytosis Cancelled 01/12/17 09:56 Microcytosis Cancelled 01/12/17 09:56 Macrocytosis Cancelled 01/12/17 09:56 Spherocytes Cancelled 01/12/17 09:56 Pappenheimer Bodies Cancelled 01/12/17 09:56 Sickle Cells Cancelled 01/12/17 09:56 Target Cells Cancelled 01/12/17 09:56 Tear Drop Cells Cancelled 01/12/17 09:56 Ovalocytes Cancelled 01/12/17 09:56 Stomatocytes Cancelled 01/12/17 09:56 Helmet Cells Cancelled 01/12/17 09:56 Pozo-Edmonds Bodies Cancelled 01/12/17 09:56 Plummer Rings Cancelled 01/12/17 09:56 [place] Cells Cancelled 01/12/17 09:56 Crenated Cell Cancelled 01/12/17 09:56 Acanthocytes (Spur) Cancelled 01/12/17 09:56 Rouleaux Cancelled 01/12/17 09:56 Schistocytes Cancelled 01/12/17 09:56 Sodium 142 mmol/L (136-145) 01/15/17 04:45 Corrected Sodium 143 mmol/L (136-145) 01/15/17 04:45 Potassium 2.9 mmol/L (3.5-5.1) L* 01/15/17 10:22 Chloride 108 mmol/L (98-107) H 01/15/17 04:45 Carbon Dioxide 25.9 mmol/L (21-32) 01/15/17 04:45 BUN 6 mg/dL (7-18) L 01/15/17 04:45 Creatinine 0.88 mg/dL (0.55-1.02) 01/15/17 04:45 Est GFR (MDRD) Af Amer > 60 (>60) 01/15/17 04:45 Est GFR (MDRD) Non-Af > 60 (>60) 01/15/17 04:45 Glucose 133 mg/dL (65-99) H 01/15/17 04:45 Lactic Acid 1.2 mmol/L (0.4-2.0) 01/12/17 19:58 Calcium 8.4 mg/dL (8.5-10.1) L 01/15/17 04:45 Corrected Calcium 9.1 mg/dL (8.5-10.1) 01/15/17 04:45 Magnesium 1.8 mg/dL (1.7-2.9) 01/15/17 04:45 Total Bilirubin 0.50 mg/dL (0.2-1.0) 01/15/17 04:45 AST 47 Units/L (15-37) H 01/15/17 04:45 ALT 18 Units/L (12-78) 01/15/17 04:45 Alkaline Phosphatase 63 Units/L (46-116) 01/15/17 04:45 Total Protein 6.9 g/dL (6.4-8.2) 01/15/17 04:45 Albumin 3.1 g/dL (3.4-5.0) L 01/15/17 04:45 Globulin 3.8 g/dL (2.5-4.5) 01/15/17 04:45 Albumin/Globulin Ratio 0.8 Ratio (1.1-2.1) L 01/15/17 04:45 Amylase 77 Units/L (25-115) 01/14/17 06:06 Lipase 156 Units/L (73-393) 01/14/17 06:06 Specimen Type Clean catch urine 01/12/17 10:00 Urine Color Yellow (YELLOW) 01/12/17 10:00 Urine Appearance Hazy (CLEAR) 01/12/17 10:00 Urine pH 6.0 (5.0 - 8.0) 01/12/17 10:00 Ur Specific [place] 1.015 (1.000-1.030) 01/12/17 10:00 Urine Protein 1+ (NEGATIVE) 01/12/17 10:00 Urine Glucose (UA) Negative (NEGATIVE) 01/12/17 10:00 Urine Ketones Negative (NEGATIVE) 01/12/17 10:00 Urine Occult Blood 1+ (NEGATIVE) 01/12/17 10:00 Urine Nitrite Negative (NEGATIVE) 01/12/17 10:00 Urine Bilirubin Negative (NEGATIVE) 01/12/17 10:00 Urine Urobilinogen 1+ (NORMAL) 01/12/17 10:00 Ur Leukocyte Esterase 2+ (NEGATIVE) 01/12/17 10:00 Urine RBC 0 /HPF (NEGATIVE) 01/12/17 10:00 Urine WBC 0-5 /HPF (NEGATIVE) 01/12/17 10:00 Ur Squamous Epith Cells Few /HPF (NEGATIVE) 01/12/17 10:00 Urine Bacteria Trace /HPF (NEGATIVE) 01/12/17 10:00 Ur Culture Indicated? No/not indicated 01/12/17 10:00 Stool Description 20g,brown loose 01/12/17 13:18 Stool for White Cells Negative (NEGATIVE) 01/12/17 13:18 Stl C. diff Tox B Gene Negative (NEGATIVE) 01/12/17 13:21 Stl C. diff [id number] Negative (NEGATIVE) 01/12/17 13:21 Cryptosporid parvum Ag Negative (NEGATIVE) 01/12/17 13:18 E. histolytica Antigen Negative (NEGATIVE) 01/12/17 13:18 Giardia lamblia Ag Negative (NEGATIVE) 01/12/17 13:18 Influenza Type A (PCR) Negative (NEGATIVE) 01/13/17 14:31 Influenza Type B (PCR) Negative (NEGATIVE) 01/13/17 14:31 - Plan (1) Abdominal pain Status: Acute Qualifiers: Abdominal location: upper abdomen, unspecified Qualified Code(s): R10.10 - Upper abdominal pain, unspecified Plan: PEPCID IV Q12H, PHENERGAN 12.5MG IVP Q6H PRN, ZOFRAN 4MG IVP Q6H PRN, CHECK AMYLASE/LIPASE IN THE MORNING. CONTINUE TO MONITOR (2) Gall stone Status: Acute Qualifiers: Cholecystitis presence: without cholecystitis Biliary obstruction: without biliary obstruction Qualified Code(s): K80.20 - Calculus of gallbladder without cholecystitis without obstruction Plan: CONSULT , CONTINUE TO MONITOR (3) Bronchopneumonia Status: Acute Plan: FORTAZ 1GM IV Q8H, LEVAQUIN 750MG IV DAILY, TESSALON PERLES 200MG TID PRN , TUSSIONEX 5ML PO Q12H PRN, DUONEB QID, CONTINUE TO MONITOR, OBTAIN (4) Hypotension Status: Acute Qualifiers: Hypotension type: unspecified hypotension type Qualified Code(s): I95.9 - Hypotension, unspecified Plan: NORMAL SALINE AT 150ML/HR, CONTINUE TO MONITOR (5) Hypoalbuminemia Status: Acute Plan: ALBUMIN 25% 2 BAGS IV DAILY, CONTINUE TO MONITOR
--- NOTE | 2017-01-15 19:25 | PCM.PROG ---
Progress Note - Progress Note for Day of Date: 01/14/17 - Subjective Subjective: IS ALERT AND ORIENTED, SITTING UP IN BED ON MORNING ROUNDS. PATIENT'S DAUGHTER IS AT BEDSIDE. PATIENT CONTINUES WITH COMPLAINTS OF WEAKNESS, PRODUCTIVE COUGH, SHORNTESS OF BREATH, AND ABDOMINAL PAIN. PATIENT REPORTS THAT SHORTNESS OF BREATH HAS WORSENED SINCE YESTERDAY. ON EXAMINATION, LUNGS CONTINUE WITH CRACKLES BILATERALLY TO AUSCULTATION. ABDOMEN IS ROUND, SOFT , AND NOTED WITH DIFFUSE TENDERNESS ON PALPATION. SHE IS UTILIZING OXYGEN VIA NASAL CANNULA AT 2L/MIN. PATIENTS TEMPERATURE REACHED 100.6 LAST NIGHT. HER VITALS THIS MORNING ARE 97.6-86-22-95%-106/58. ABNORMAL LAB VALUES TODAY INCLUDE THE FOLLOWING: RBC 3.14, HGB 10.0, HCT 29.4, PLT COUNT 80, POTASSIUM 3.3 , CHLORIDE 108, BUN 5, GLUCOSE 103, CALCIUM 8.4, AST 47, ALBUMIN 2.7. INFLUENZA WAS NEGATIVE. PRELIMINARY BLOOD CULTURES REPORT NO GROWTH. A CHEST XRAY WAS OBTAINED THIS MORNING. IT REPORTEDINTERVAL PROGRESSION/WORSENING OF DISEASE. WE CONSULTED WITH INFECTION CONTROL. PATIENT WAS PLACED ON DROPLET PRECAUTIONS. A SPUTUM ABF CULTURE WILL BE OBTAINED DAILY X 3 DAYS. A HIV PANEL WAS ORDERED. GASTROENTEROLOGY CONSULTED WITH PATIENT AND STARTED PATIENT ON PEPCID 20MG IV BID. THEY WILL CONTINUE TO OBSERVE PATIENT AND SCOPE PATIENT IF SYMPTOMS PERSIST. TODAY, WE WILL START SOLU-MEDROL 80MG IV Q8H, MATT-DUR 200MG PO BID, ADD MUCOMYST TO NEB TX, AND ADD PULMICORT NEB TX. WE WILL CHECK AM LABS AND CONTINUE TO MONITOR PATIENT. - Past Medical Family Social History Past Med/Fam/Surg Hx: No changes since H&P Allergies: Allergies minocycline [From Minocin] Allergy (Verified 01/12/17 09:35) - Review of Systems ROS: No change since H&P - Vital Signs and I&O's Vital Signs: Temperature 97.6 F Pulse Rate [Right Brachial] 107 Pulse Rate [Left Radial] 78 Pulse Rate 68 Respiratory Rate 20 Blood Pressure [Right Arm] 111/62 Blood Pressure 93/57 O2 Sat by Pulse Oximetry 96 Intake and Output: Intake & Output 01/13/17 01/14/17 01/15/17 01/16/17 11:59 11:59 11:59 11:59 Intake Total 840 2700 1800 2690 Output Total 400 2600 150 Balance 299 782 2465 2690 - Physical Exam Oriented: Normal Eyes: Normal. negative: Blurred Vision, Diplopia, Discharge, Pain, Photophobia Ear: Normal. negative: Abrasion, Laceration Nose: Normal. negative: Discharge, Blood Throat: Normal Respiratory: OTHER (CRACKLES) Cardiovascular: Normal. negative: Murmur, Edema : Normal. negative: Testicular Pain, Bleeding, Auscultation: Bowel Sounds: Increased Palpation: Normal Tenderness: Diffuse, Moderate. negative: Rebound, Guarding, Rigidity Skin: Normal. negative: Wound, Bruising, Ecchymosis Musculoskeletal: Normal Psychiatric: Normal Mood Description: Calm Affect: Normal Speech Pattern: Clear, Appropriate - Laboratory and Diagnostics Result Diagrams: 01/15/17 04:45 01/15/17 17:25 Labs: 01/12/17 21:42 Sputum - Expectorated Sputum Sputum Culture - Final 01/12/17 21:42 Sputum - Expectorated Sputum - Final 01/12/17 19:53 Blood Blood Culture - Preliminary 01/12/17 19:58 Blood Blood Culture - Preliminary 01/12/17 13:17 Stool Stool Culture - Final 01/12/17 13:17 Stool - Final Laboratory WBC 4.6 X10^3/uL (3.6-10.0) 01/15/17 04:45 RBC 3.17 X10^6/uL (3.5-5.4) L 01/15/17 04:45 Hgb 10.1 g/dL (12.0-16.0) L 01/15/17 04:45 Hct 29.8 % (36.0-47.0) L 01/15/17 04:45 MCV 93.9 fL (80.0-100.0) 01/15/17 04:45 MCH 31.8 pg (27.0-34.0) 01/15/17 04:45 MCHC 33.9 g/dL (33.0-35.0) 01/15/17 04:45 RDW 13.9 % (11.6-16.5) 01/15/17 04:45 Plt Count 88 X10^3/uL (150.0-450.0) L 01/15/17 04:45 Plt Count Comment Decreased (ADEQUATE) A 01/12/17 09:56 MPV 10.0 fL (7.4-11.0) 01/15/17 04:45 Neut % 82.1 % (42.0-75.0) H 01/15/17 04:45 Lymph % 10.7 % (21.0-51.0) L 01/15/17 04:45 [place] % 7.1 % (0.0-13.0) 01/15/17 04:45 Eos % 0.0 % (0.9-2.9) L 01/15/17 04:45 Baso % 0.1 % (0.2-1.0) L 01/15/17 04:45 Neut # 3.8 x10^3/uL (2.2-4.8) 01/15/17 04:45 Lymph # 0.5 X10^3/uL (1.3-2.9) L 01/15/17 04:45 [place] # 0.3 x10^3/uL (0.3-0.8) 01/15/17 04:45 Eos # 0.0 x10^3/uL (0.0-0.2) 01/15/17 04:45 Baso # 0.0 X10^3/uL (0.0-0.1) 01/15/17 04:45 Absolute Nucleated RBC 0.1 /100WBC 01/15/17 04:45 Total Counted 100 01/12/17 09:56 Neutrophils % (Manual) 79 % (39-76) H 01/12/17 09:56 Lymphocytes % (Manual) 13 % (13-43) 01/12/17 09:56 Monocytes % (Manual) 8 % (4-9) 01/12/17 09:56 Nucleated RBCs Cancelled 01/12/17 09:56 Atypical Lymphocytes Cancelled 01/12/17 09:56 Blast Cells Cancelled 01/12/17 09:56 Smudge Cells Cancelled 01/12/17 09:56 Toxic Granulation Cancelled 01/12/17 09:56 Dohle Bodies Cancelled 01/12/17 09:56 Mouna Rods Cancelled 01/12/17 09:56 Plt Clumps, EDTA Cancelled 01/12/17 09:56 Giant Platelets Cancelled 01/12/17 09:56 Plt Morphology Comment Normal (NORMAL) 01/12/17 09:56 RBC Morphology Normal (NORMAL) 01/12/17 09:56 Dimorphic RBCs Cancelled 01/12/17 09:56 Polychromasia Cancelled 01/12/17 09:56 Hypochromasia Cancelled 01/12/17 09:56 Poikilocytosis Cancelled 01/12/17 09:56 Basophilic Stippling Cancelled 01/12/17 09:56 Anisocytosis Cancelled 01/12/17 09:56 Microcytosis Cancelled 01/12/17 09:56 Macrocytosis Cancelled 01/12/17 09:56 Spherocytes Cancelled 01/12/17 09:56 Pappenheimer Bodies Cancelled 01/12/17 09:56 Sickle Cells Cancelled 01/12/17 09:56 Target Cells Cancelled 01/12/17 09:56 Tear Drop Cells Cancelled 01/12/17 09:56 Ovalocytes Cancelled 01/12/17 09:56 Stomatocytes Cancelled 01/12/17 09:56 Helmet Cells Cancelled 01/12/17 09:56 [place] Bodies Cancelled 01/12/17 09:56 [place] Rings Cancelled 01/12/17 09:56 [place] Cells Cancelled 01/12/17 09:56 Crenated Cell Cancelled 01/12/17 09:56 Acanthocytes (Spur) Cancelled 01/12/17 09:56 Rouleaux Cancelled 01/12/17 09:56 Schistocytes Cancelled 01/12/17 09:56 Sodium 142 mmol/L (136-145) 01/15/17 04:45 Corrected Sodium 143 mmol/L (136-145) 01/15/17 04:45 Potassium 3.5 mmol/L (3.5-5.1) 01/15/17 17:25 Chloride 108 mmol/L (98-107) H 01/15/17 04:45 Carbon Dioxide 25.9 mmol/L (21-32) 01/15/17 04:45 BUN 6 mg/dL (7-18) L 01/15/17 04:45 Creatinine 0.88 mg/dL (0.55-1.02) 01/15/17 04:45 Est GFR (MDRD) Af Amer > 60 (>60) 01/15/17 04:45 Est GFR (MDRD) Non-Af > 60 (>60) 01/15/17 04:45 Glucose 133 mg/dL (65-99) H 01/15/17 04:45 Lactic Acid 1.2 mmol/L (0.4-2.0) 01/12/17 19:58 Calcium 8.4 mg/dL (8.5-10.1) L 01/15/17 04:45 Corrected Calcium 9.1 mg/dL (8.5-10.1) 01/15/17 04:45 Magnesium 1.8 mg/dL (1.7-2.9) 01/15/17 04:45 Total Bilirubin 0.50 mg/dL (0.2-1.0) 01/15/17 04:45 AST 47 Units/L (15-37) H 01/15/17 04:45 ALT 18 Units/L (12-78) 01/15/17 04:45 Alkaline Phosphatase 63 Units/L (46-116) 01/15/17 04:45 Ammonia 38 umol/L (11-32) H 01/15/17 13:11 Total Protein 6.9 g/dL (6.4-8.2) 01/15/17 04:45 Albumin 3.1 g/dL (3.4-5.0) L 01/15/17 04:45 Globulin 3.8 g/dL (2.5-4.5) 01/15/17 04:45 Albumin/Globulin Ratio 0.8 Ratio (1.1-2.1) L 01/15/17 04:45 Amylase 77 Units/L (25-115) 01/14/17 06:06 Lipase 156 Units/L (73-393) 01/14/17 06:06 Specimen Type Clean catch urine 01/12/17 10:00 Urine Color Yellow (YELLOW) 01/12/17 10:00 Urine Appearance Hazy (CLEAR) 01/12/17 10:00 Urine pH 6.0 (5.0 - 8.0) 01/12/17 10:00 Ur Specific [place] 1.015 (1.000-1.030) 01/12/17 10:00 Urine Protein 1+ (NEGATIVE) 01/12/17 10:00 Urine Glucose (UA) Negative (NEGATIVE) 01/12/17 10:00 Urine Ketones Negative (NEGATIVE) 01/12/17 10:00 Urine Occult Blood 1+ (NEGATIVE) 01/12/17 10:00 Urine Nitrite Negative (NEGATIVE) 01/12/17 10:00 Urine Bilirubin Negative (NEGATIVE) 01/12/17 10:00 Urine Urobilinogen 1+ (NORMAL) 01/12/17 10:00 Ur Leukocyte Esterase 2+ (NEGATIVE) 01/12/17 10:00 Urine RBC 0 /HPF (NEGATIVE) 01/12/17 10:00 Urine WBC 0-5 /HPF (NEGATIVE) 01/12/17 10:00 Ur Squamous Epith Cells Few /HPF (NEGATIVE) 01/12/17 10:00 Urine Bacteria Trace /HPF (NEGATIVE) 01/12/17 10:00 Ur Culture Indicated? No/not indicated 01/12/17 10:00 Stool Description 20g,brown loose 01/12/17 13:18 Stool for White Cells Negative (NEGATIVE) 01/12/17 13:18 Stl C. diff Tox B Gene Negative (NEGATIVE) 01/12/17 13:21 Stl C. diff [id number] Negative (NEGATIVE) 01/12/17 13:21 Cryptosporid parvum Ag Negative (NEGATIVE) 01/12/17 13:18 E. histolytica Antigen Negative (NEGATIVE) 01/12/17 13:18 Giardia lamblia Ag Negative (NEGATIVE) 01/12/17 13:18 Influenza Type A (PCR) Negative (NEGATIVE) 01/13/17 14:31 Influenza Type B (PCR) Negative (NEGATIVE) 01/13/17 14:31 - Plan (1) Abdominal pain Status: Acute Qualifiers: Abdominal location: upper abdomen, unspecified Qualified Code(s): R10.10 - Upper abdominal pain, unspecified Plan: PEPCID IV Q12H, PHENERGAN 12.5MG IVP Q6H PRN, ZOFRAN 4MG IVP Q6H PRN, CHECK AMYLASE/LIPASE IN THE MORNING. CONTINUE TO MONITOR (2) Gall stone Status: Acute Qualifiers: Cholecystitis presence: without cholecystitis Biliary obstruction: without biliary obstruction Qualified Code(s): K80.20 - Calculus of gallbladder without cholecystitis without obstruction Plan: CONSULT , CONTINUE TO MONITOR (3) Bronchopneumonia Status: Acute Plan: SOLU-MEDROL 80MG IV Q8H PRN, PULMICORT NEB TX, , THEOPHYLLINE 200MG PO BID , MUCOMYST TO NEB [place] BID, FORTAZ 1GM IV Q8H, LEVAQUIN 750MG IV DAILY, TESSALON PERLES 200MG TID PRN, TUSSIONEX 5ML PO Q12H PRN, DUONEB QID, CONTINUE TO MONITOR (4) Hypotension Status: Acute Qualifiers: Hypotension type: unspecified hypotension type Qualified Code(s): I95.9 - Hypotension, unspecified Plan: NORMAL SALINE AT 150ML/HR, CONTINUE TO MONITOR (5) Hypoalbuminemia Status: Acute Plan: ALBUMIN 25% 2 BAGS IV DAILY, CONTINUE TO MONITOR
[2017-01-15] MEDS: PHENERGAN INJ 25 MG IVP PRN (21:23)
[2017-01-16] MEDS: NS 250 ML IV 250 ML IV SCH ×2 (03:07→14:47)
[2017-01-16 06:50] LABS: AMMONIA 28 umol/L (11-32)
[2017-01-16 07:00] LABS: ALANINE AMINOTRANSFERASE 23 Units/L (12-78); ALBUMIN 3.5 g/dL (3.4-5.0); ALKALINE PHOSPHATASE 57 Units/L (46-116); ASPARTATE AMINO TRANSFERASE 55 Units/L (15-37); BASOPHILS # (AUTO) 0.1 X10^3/uL (0.0-0.1); BLOOD UREA NITROGEN 7 mg/dL (7-18); CALCIUM 8.9 mg/dL (8.5-10.1); CARBON DIOXIDE 28.3 mmol/L (21-32); CHLORIDE 110 mmol/L (98-107); COR NA(FOR HYPERGLY) 146 mmol/L (136-145); HEMATOCRIT 27.1 % (36.0-47.0); HEMOGLOBIN 9.1 g/dL (12.0-16.0); LYMPHOCYTES # (AUTO) 0.4 X10^3/uL (1.3-2.9); MEAN CORPUSCULAR HEMOGLOBIN 31.5 pg (27.0-34.0); MEAN CORPUSCULAR HGB CONC 33.6 g/dL (33.0-35.0); MEAN CORPUSCULAR VOLUME 93.8 fL (80.0-100.0); MEAN PLATELET VOLUME 10.1 fL (7.4-11.0); MONOCYTES # (AUTO) 0.8 x10^3/uL (0.3-0.8); MONOCYTES % (AUTO) 7.6 % (0.0-13.0); NEUTROPHILS # (AUTO) 9.2 x10^3/uL (2.2-4.8); NEUTROPHILS % (AUTO) 87.4 % (42.0-75.0); PLATELET COUNT 101 X10^3/uL (150.0-450.0); RED BLOOD COUNT 2.89 X10^6/uL (3.5-5.4); RED CELL DISTRIBUTION WIDTH 14.4 % (11.6-16.5); SODIUM 145 mmol/L (136-145); TOTAL PROTEIN 6.7 g/dL (6.4-8.2); WHITE BLOOD COUNT 10.5 X10^3/uL (3.6-10.0); eGFR BLACK RACES > 60 (>60); eGFR NON BLACK RACES > 60 (>60)
--- NOTE | 2017-01-16 08:39 | RAD ---
History: Shortness of breath Study: Portable chest, comparison 01/15/2017 Findings: Portable AP erect chest labeled 6:44 a.m. shows the cardiac silhouette to be within normal limits. Persistent interstitial and alveolar infiltration of the upper lobes is seen. This appears slightly m ore apparent. No pleural effusion is noted. The osseous structures appear intact. Impression: 1. Interstitial and alveolar infiltration of the upper lobes, slightly increased over the previous ex am. Differential would include pneumonia from granulomatous or atypical organisms as well as fungal d isease. Hypersensitivity pneumonitis or inhalational exposure would be within the differential as wel l. 2. No pleural effusion is evident. Reported By:
[2017-01-16] MEDS: DUONEB 0.5 MG/3 MG NEB SCH ×4 (08:50→20:16)
[2017-01-16] MEDS: PULMICORT NEB TX 0.5 MG NEB SCH ×2 (08:51→20:16)
[2017-01-16] MEDS: MUCOMYST 20% 200 MG/ML NEB SCH ×2 (08:51→20:16)
[2017-01-16] MEDS: THEO-DUR TAB 200 MG PO SCH ×2 (09:05→22:06)
[2017-01-16] MEDS: SYNTHROID 50 mcg TAB PO SCH (09:05)
[2017-01-16] MEDS: LEVAQUIN PREMIX IV 750 MG 750 MG/150 ML BAG IV SCH (09:06)
[2017-01-16] MEDS: FORTAZ or TAZICEF INJ 1 GM in NS 50 ML IV 50 ML IV SCH ×2 (09:06→14:08)
[2017-01-16] MEDS: SOLU-Medrol 40 MG VIAL IVP SCH ×3 (09:06→23:55)
[2017-01-16] MEDS: ALBUMIN HUMAN 25%- 100ML 200 ML IV SCH (09:30)
[2017-01-16] MEDS: ALDACTONE TAB 25 MG PO SCH (10:46)
[2017-01-16] MEDS: DESYREL PO SCH ×2 (10:46→22:11)
[2017-01-16] MEDS: PROTONIX INJ 40 MG VIAL IVP SCH ×2 (10:47→22:06)
[2017-01-16] MEDS: PHENERGAN INJ 25 MG IVP PRN (10:49)
[2017-01-16] MEDS: DIFLUCAN 200 MG IV PREMIX* 200 MG/100 ML BAG IV SCH (14:44)
[2017-01-16] MEDS: ZOFRAN INJ 4 MG VIAL IVP PRN (15:43)
--- NOTE | 2017-01-16 16:51 | CT ---
CT abdomen and pelvis with contrast Indication: History of liver problems and COPD Technique: Helical CT images of the were obtained with IV contrast. Reformatted images in the gutierrez l and sagittal planes were also generated for review. Comparison: 01/12/2017 Findings: Limited images of the lower chest demonstrate new small-moderate bilateral effusions and pa tchy opacities throughout the visualized bilateral lower lobes, lingula and right middle lobe. No agg ressive osseous lesions are identified. There is moderate volume abdominal pelvic ascites, increased since prior exam. New mild generalized a nasarca is also noted. There is mild periportal edema. The liver is borderline cirrhotic in configura tion without focal lesion. There is a recanalized umbilical vein as well as small collateral varices within the left lower abdominal wall. The spleen, pancreas, adrenals and kidneys are unremarkable. Sm all gallstones are present within the nondistended gallbladder. Moderate gallbladder edema is likely related to chronic liver disease. There is no biliary dilatation. The GI tract is normal without focal bowel wall thickening or obstruction. There is mild calcificatio n of the abdominal aorta without aneurysm. The urinary bladder is unremarkable. The uterus is present . No free air or lymphadenopathy is identified. Impression: Borderline cirrhotic liver configuration with evidence of portal venous hypertension, including worse dillon abdominal pelvic ascites and portosystemic collaterals, as detailed above. Findings suggestive for volume overload, including new generalized anasarca and small-moderate bilate ral pleural effusions. New patchy airspace disease within the visualized lungs, suspicious for multifocal pneumonia. Cholelithiasis and additional incidental findings, as above. Reported By:
[2017-01-16] MEDS: TUSSIONEX PENNKINETIC SUSP PO PRN (17:18)
[2017-01-16 18:08] LABS: ABG BASE EXCESS 6.7 mmol/L (-2.0-2.0)
[2017-01-16 18:09] LABS: ABG ALLEN TEST POS; ABG HCO3 32.4 mmol/L (22-26); FRACTIONATED INSPIRED OXYGEN 32
[2017-01-16] MEDS: ROXICODONE TAB 5 MG PO PRN (18:16)
[2017-01-16] MEDS ORDERED: LASIX IVP ONE (18:24)
[2017-01-16 19:25] LABS: BILIRUBIN,URINE NEGATIVE (NEGATIVE); BLOOD/HEMOGLOBIN,URINE 2+ (NEGATIVE); GLUCOSE, URINE NEGATIVE (NEGATIVE); KETONES,URINE NEGATIVE (NEGATIVE); LEUKOCYTE ESTERASE ,URINE NEGATIVE (NEGATIVE); NITRITES,URINE NEGATIVE (NEGATIVE); PROTEIN,URINE 1+ (NEGATIVE); UROBILINOGEN,URINE NORMAL (NORMAL)
[2017-01-16] MEDS: MORPHINE SULFATE INJ 2 MG INJ IVP SCH ×2 (19:40→22:18)
[2017-01-16 20:05] LABS: APPEARANCE,URINE CLEAR (CLEAR); COLOR,URINE YELLOW (YELLOW); RBC,URINE 0-3 /HPF (NEGATIVE)
[2017-01-16 20:06] LABS: BACTERIA,URINE NEGATIVE /HPF (NEGATIVE); MUCUS,URINE FEW /HPF (NEGATIVE); SQUAMOUS EPITHELIAL CELL,UR MANY /HPF (NEGATIVE)
[2017-01-16] MEDS ORDERED: ZOSYN VIAL 3.375 GM IV SCH (21:00)
[2017-01-16] MEDS ORDERED: VANCOMYCIN HCL 1 GM VIAL IV SCH (21:00)
[2017-01-16] MEDS ORDERED: DUONEB 0.5 MG/3 MG NEB SCH (21:00)
[2017-01-16] MEDS ORDERED: VANCOMYCIN HCL 500 MG VIAL 500 MG in NS 100 ML IV + SPIKE MINIBAG* 100 ML IV SCH (21:00)
[2017-01-16] MEDS: ZOSYN VIAL 3.375 GM 3.375 GM in NS 100 ML IV + SPIKE MINIBAG* 100 ML IV SCH (22:03)
[2017-01-16] MEDS: VANCOMYCIN HCL 500 MG VIAL 500 MG in NS 100 ML IV + SPIKE MINIBAG* 100 ML IV SCH (22:17)
[2017-01-17] MEDS: DUONEB 0.5 MG/3 MG NEB SCH ×6 (00:43→20:27)
[2017-01-17] MEDS: MORPHINE SULFATE INJ 2 MG INJ IVP SCH ×13 (01:00→22:43)
[2017-01-17] MEDS: ZOSYN VIAL 3.375 GM 3.375 GM in NS 100 ML IV + SPIKE MINIBAG* 100 ML IV SCH ×4 (02:12→21:33)
[2017-01-17] MEDS: NS 250 ML IV 250 ML IV SCH ×2 (04:50→22:42)
[2017-01-17] MEDS: SOLU-Medrol 40 MG VIAL IVP SCH (05:43)
[2017-01-17] MEDS: SYNTHROID 50 mcg TAB PO SCH (06:12)
[2017-01-17 06:19] LABS: BASOPHILS % (AUTO) 0 % (0.2-1.0); HEMATOCRIT 24.1 % (36.0-47.0); HEMOGLOBIN 8.2 g/dL (12.0-16.0); LYMPHOCYTES # (AUTO) 0.4 X10^3/uL (1.3-2.9); LYMPHOCYTES % (AUTO) 6.4 % (21.0-51.0); MEAN CORPUSCULAR HEMOGLOBIN 31.7 pg (27.0-34.0); MEAN CORPUSCULAR HGB CONC 34.1 g/dL (33.0-35.0); MONOCYTES # (AUTO) 0.5 x10^3/uL (0.3-0.8); MONOCYTES % (AUTO) 8.7 % (0.0-13.0); NEUTROPHILS # (AUTO) 5.3 x10^3/uL (2.2-4.8); NEUTROPHILS % (AUTO) 84.9 % (42.0-75.0); PLATELET COUNT 84 X10^3/uL (150.0-450.0); RED BLOOD COUNT 2.59 X10^6/uL (3.5-5.4); RED CELL DISTRIBUTION WIDTH 14.2 % (11.6-16.5); WHITE BLOOD COUNT 6.2 X10^3/uL (3.6-10.0)
[2017-01-17 06:37] LABS: ALANINE AMINOTRANSFERASE 17 Units/L (12-78); ALBUMIN 3.3 g/dL (3.4-5.0); ALKALINE PHOSPHATASE 47 Units/L (46-116); ASPARTATE AMINO TRANSFERASE 36 Units/L (15-37); BLOOD UREA NITROGEN 11 mg/dL (7-18); CALCIUM 8.7 mg/dL (8.5-10.1); CARBON DIOXIDE 35.6 mmol/L (21-32); CHLORIDE 108 mmol/L (98-107); COR CA(FOR HYPOALB) 9.3 mg/dL (8.5-10.1); COR NA(FOR HYPERGLY) 148 mmol/L (136-145); SODIUM 147 mmol/L (136-145); TOTAL PROTEIN 6.1 g/dL (6.4-8.2); eGFR BLACK RACES > 60 (>60); eGFR NON BLACK RACES > 60 (>60)
[2017-01-17] MEDS: K-LYTE EFFERVESCENT PO PRN (06:47)
--- NOTE | 2017-01-17 07:54 | RAD ---
HISTORY: Shortness of breath, COPD, asthma, hemochromatosis, hepatitis C. Study: Single-view chest, done portably Comparison: 01/16/2017. Findings: Trachea is midline. The heart size is normal. Bilateral predominantly upper lobe interstitial and roberto eolar densities are again seen. Some improved aeration is seen in the left upper lobe. There are jj y signs of involvement of both lower lobes, more so on the right side. No pleural fluid or pneumothor ax is seen. Osseous structures are intact. IMPRESSION: Changing pattern of bilateral interstitial and alveolar densities. There is a wide differential diagn osis, as indicated by Dr. Orellana on his prior report. Reported By:
[2017-01-17] MEDS: TUSSIONEX PENNKINETIC SUSP PO PRN (08:10)
[2017-01-17] MEDS ORDERED: LEVAQUIN PREMIX IV 500 MG 500 MG/100 ML BAG IV SCH (09:00)
[2017-01-17] MEDS: PULMICORT NEB TX 0.5 MG NEB SCH ×2 (09:07→20:27)
[2017-01-17] MEDS: DESYREL PO SCH ×2 (09:16→20:10)
[2017-01-17] MEDS: THEO-DUR TAB 200 MG PO SCH ×2 (09:17→20:10)
[2017-01-17] MEDS: ALDACTONE TAB 25 MG PO SCH (09:17)
[2017-01-17 09:18] LABS: ABG BASE EXCESS 14.1 mmol/L (-2.0-2.0)
[2017-01-17] MEDS: DIFLUCAN 200 MG IV PREMIX* 200 MG/100 ML BAG IV SCH (09:18)
[2017-01-17 09:19] LABS: ABG ALLEN TEST POS; ABG HCO3 39.6 mmol/L (22-26); FRACTIONATED INSPIRED OXYGEN 21
[2017-01-17] MEDS: VANCOMYCIN HCL 500 MG VIAL 500 MG in NS 100 ML IV + SPIKE MINIBAG* 100 ML IV SCH ×2 (09:19→20:11)
[2017-01-17] MEDS: PROTONIX INJ 40 MG VIAL IVP SCH ×2 (09:19→20:11)
[2017-01-17] MEDS: ALBUMIN HUMAN 25%- 100ML 200 ML IV SCH (09:20)
[2017-01-17] MEDS: LASIX IVP SCH ×2 (11:13→20:11)
[2017-01-17 15:02] LABS: ABG BASE EXCESS 15.1 mmol/L (-2.0-2.0)
[2017-01-17 15:03] LABS: ABG HCO3 42.1 mmol/L (22-26)
[2017-01-17 15:04] LABS: ABG ALLEN TEST POS
[2017-01-17] MEDS ORDERED: NS 100 ML IV + SPIKE MINIBAG* 100 ML IV ONE (21:04)
[2017-01-17] MEDS ORDERED: ZOSYN VIAL 3.375 GM IV ONE (21:04)
[2017-01-18] MEDS: MORPHINE SULFATE INJ 2 MG INJ IVP SCH ×9 (00:50→16:41)
[2017-01-18] MEDS: DUONEB 0.5 MG/3 MG NEB SCH ×6 (00:54→17:57)
[2017-01-18] MEDS ORDERED: ZOSYN VIAL 3.375 GM IV ONE ×2 (02:05→14:54)
[2017-01-18] MEDS ORDERED: NS 100 ML IV 100 ML IV ONE (02:05)
[2017-01-18] MEDS: ZOSYN VIAL 3.375 GM 3.375 GM in NS 100 ML IV + SPIKE MINIBAG* 100 ML IV SCH ×3 (02:17→15:00)
[2017-01-18] MEDS: NS 250 ML IV 250 ML IV SCH (06:11)
[2017-01-18 06:19] LABS: BASOPHILS % (AUTO) 0.1 % (0.2-1.0); HEMATOCRIT 25.1 % (36.0-47.0); HEMOGLOBIN 8.7 g/dL (12.0-16.0); LYMPHOCYTES # (AUTO) 0.6 X10^3/uL (1.3-2.9); LYMPHOCYTES % (AUTO) 7.9 % (21.0-51.0); MEAN CORPUSCULAR HEMOGLOBIN 32.2 pg (27.0-34.0); MEAN CORPUSCULAR HGB CONC 34.6 g/dL (33.0-35.0); MEAN CORPUSCULAR VOLUME 93.1 fL (80.0-100.0); MEAN PLATELET VOLUME 8.7 fL (7.4-11.0); MONOCYTES # (AUTO) 0.7 x10^3/uL (0.3-0.8); MONOCYTES % (AUTO) 10.1 % (0.0-13.0); NEUTROPHILS # (AUTO) 5.8 x10^3/uL (2.2-4.8); NEUTROPHILS % (AUTO) 81.9 % (42.0-75.0); PLATELET COUNT 82 X10^3/uL (150.0-450.0); RED BLOOD COUNT 2.69 X10^6/uL (3.5-5.4); RED CELL DISTRIBUTION WIDTH 14.1 % (11.6-16.5)
[2017-01-18] MEDS: SYNTHROID 50 mcg TAB PO SCH (06:21)
[2017-01-18 06:26] LABS: ALANINE AMINOTRANSFERASE 24 Units/L (12-78); ALBUMIN 3.7 g/dL (3.4-5.0); ALKALINE PHOSPHATASE 49 Units/L (46-116); ASPARTATE AMINO TRANSFERASE 42 Units/L (15-37); BLOOD UREA NITROGEN 13 mg/dL (7-18); CALCIUM 8.5 mg/dL (8.5-10.1); CHLORIDE 100 mmol/L (98-107); COR NA(FOR HYPERGLY) 147 mmol/L (136-145); SODIUM 146 mmol/L (136-145); TOTAL PROTEIN 6.3 g/dL (6.4-8.2); eGFR BLACK RACES > 60 (>60); eGFR NON BLACK RACES > 60 (>60)
[2017-01-18 06:54] LABS: CARBON DIOXIDE 42.2 mmol/L (21-32)
[2017-01-18] MEDS: PULMICORT NEB TX 0.5 MG NEB SCH (09:00)
[2017-01-18] MEDS: K-LYTE EFFERVESCENT PO PRN ×2 (09:47→16:51)
[2017-01-18] MEDS: ALBUMIN HUMAN 25%- 100ML 200 ML IV SCH (09:49)
[2017-01-18] MEDS: DESYREL PO SCH (09:51)
[2017-01-18] MEDS: THEO-DUR TAB 200 MG PO SCH (09:51)
[2017-01-18] MEDS: PROTONIX INJ 40 MG VIAL IVP SCH (09:51)
[2017-01-18] MEDS: DIFLUCAN 200 MG IV PREMIX* 200 MG/100 ML BAG IV SCH (09:51)
[2017-01-18] MEDS: ALDACTONE TAB 25 MG PO SCH (09:52)
[2017-01-18] MEDS: VANCOMYCIN HCL 500 MG VIAL 500 MG in NS 100 ML IV + SPIKE MINIBAG* 100 ML IV SCH (12:00)
--- NOTE | 2017-01-18 13:34 | CT ---
HISTORY: Hypotension, shortness of breath, cough Study: Noncontrast CT scan of the chest Comparison: CT chest done 01/13/2017. Technique: Noncontrast CT images of the chest are reviewed in axial, coronal and sagittal planes. Dos e reduction techniques utilized automatic exposure control. Findings: The bilateral pleural effusions have significantly increased compared to prior study. Interstitial yenny ng disease is seen in the upper lobes but is now noted in both lower lobes as well. No dense consolid ation is seen. There is significant honeycombing bilaterally. Differential diagnosis has been previou sly offered. Images do extend into the upper abdomen. There are changes of ascites present in the abd omen. A few tiny calcified gallstones are present. There is a small pericardial effusion measuring 6 mm thickness. A few central mediastinal lymph nodes are present. IMPRESSION: Interval increase in bilateral pleural effusions. Severe interstitial lung disease bilaterally which is now seen to encroach into the lower lobes more than on prior studies. Previous differential diagnosis has been offered. No dense consolidation is se en. Abdominal ascites with a few small calcified gallstones present. Reported By:
[2017-01-18 14:36] LABS: ABG BASE EXCESS 23.6 mmol/L (-2.0-2.0)
[2017-01-18 14:37] LABS: ABG ALLEN TEST POS; ABG HCO3 50.1 mmol/L (22-26)
[2017-01-18 16:18] VITALS: BP 139/63
[2017-01-18] MEDS ORDERED: BROVANA ONE (16:30)
[2017-01-18] MEDS ORDERED: NS + KCL 20 MEQ/L 1,000 ML IV ONE (17:07)
[2017-01-18] MEDS ORDERED: ROBITUSSIN DM ONE (17:08)
[2017-01-18] MEDS ORDERED: LASIX IVP ONE ×2 (17:08→17:30)
[2017-01-18] MEDS ORDERED: BROVANA IN SCH ×2 (18:00→21:00)
[2017-01-18] MEDS ORDERED: ROBITUSSIN DM PO PRN (18:11)
[2017-01-18] MEDS ORDERED: NS + KCL 20 MEQ/L 1,000 ML IV SCH (19:00)
[2017-01-18] MEDS: ZOFRAN INJ 4 MG VIAL IVP PRN (19:10)
[2017-01-18] MEDS ORDERED: ACCUNEB 1.25 MG NEBULE NEB SCH ×4 (21:00)
[2017-01-20 07:21] LABS: ACID FAST STAIN NEGATIVE
[2017-01-20 07:21] LABS: ACID FAST STAIN NEGATIVE
== END 2017-01-18 19:32 | disposition short-term general hospital (02) | DRG 314 ==
LOC: ER 09:42 → MED/SURG 14:31 → OBSVTOIN 14:31 → MED/SURG 01-14 12:30
PROVIDERS: ADMIT Internal Medicine; ATTEND Internal Medicine
PROC: 3E0234Z Introduction of Serum, Toxoid and Vaccine into Muscle, Percutaneous Approach (ICD-10-PCS; principal; 2017-01-12)
PROC: 3E0234Z Introduction of Serum, Toxoid and Vaccine into Muscle, Percutaneous Approach (ICD-10-PCS; 2017-01-12)
DX: I95.89 Other hypotension (principal); R10.84 Generalized abdominal pain; R19.7 Diarrhea, unspecified; R51 Headache; E86.0 Dehydration; J44.9 Chronic obstructive pulmonary disease, unspecified; R10.10 Upper abdominal pain, unspecified; K80.20 Calculus of gallbladder without cholecystitis without obstruction; R12 Heartburn; J18.8 Other pneumonia, unspecified organism; R74.8 Abnormal levels of other serum enzymes; E88.09 Other disorders of plasma-protein metabolism, not elsewhere classified; R06.03 Acute respiratory distress; Z23 Encounter for immunization
CPT/HCPCS: 36415; 36600; 71010; 71250; 71260; 74176; 74177; 80053; 81001; 82140; 82150; 82803; 83605; 83630; 83690; 83735; 84132; 85025; 86701; 87015; 87040; 87045; 87070; 87116; 87205; 87328; 87329; 87336; 87427; 87493; 87502; 87899; 90686; 94640; 94660; 94669; 94760; 96365; 96367; 96374; 99238; 99284; A4222; A4618; A7030; C9113; P9047; S0028; 90670; J0713; J1450; J1940; J1956; J2270; J2405; J2543; J2550; J2920; J3370; J3480; J7608; J7620; J7626

== ENCOUNTER → 2017-03-18 | Outpatient (CLI) | payer SELFPAY ==
[2017-03-18 12:40] LABS: BASOPHILS # (AUTO) 0.1 X10^3/uL (0.0-0.1); BASOPHILS % (AUTO) 1.1 % (0.2-1.0); EOSINOPHILS # (AUTO) 0.5 x10^3/uL (0.0-0.2); EOSINOPHILS % (AUTO) 7.6 % (0.9-2.9); HEMATOCRIT 37.5 % (36.0-47.0); HEMOGLOBIN 12.8 g/dL (12.0-16.0); LYMPHOCYTES # (AUTO) 2.7 X10^3/uL (1.3-2.9); LYMPHOCYTES % (AUTO) 42.5 % (21.0-51.0); MEAN CORPUSCULAR HEMOGLOBIN 30.7 pg (27.0-34.0); MEAN CORPUSCULAR VOLUME 90.2 fL (80.0-100.0); MEAN PLATELET VOLUME 8.6 fL (7.4-11.0); MONOCYTES # (AUTO) 0.8 x10^3/uL (0.3-0.8); MONOCYTES % (AUTO) 13.3 % (0.0-13.0); NEUTROPHILS # (AUTO) 2.2 x10^3/uL (2.2-4.8); NEUTROPHILS % (AUTO) 35.5 % (42.0-75.0); PLATELET COUNT 111 X10^3/uL (150.0-450.0); RED BLOOD COUNT 4.16 X10^6/uL (3.5-5.4); RED CELL DISTRIBUTION WIDTH 16.4 % (11.6-16.5); WHITE BLOOD COUNT 6.3 X10^3/uL (3.6-10.0)
[2017-03-18 12:47] LABS: ALBUMIN 2.8 g/dL (3.4-5.0); BILIRUBIN,DIRECT 0.16 mg/dL (0-0.2); TOTAL PROTEIN 7.5 g/dL (6.4-8.2)
== END ==
LOC: LAB 12:10
PROVIDERS: ATTEND Internal Medicine Gastroenterology
DX: B18.2 Chronic viral hepatitis C (principal)
CPT/HCPCS: 36415; 80076; 85025; 87522